=== PATIENT | male | born 1965 | race Caucasian/White ===

== ENCOUNTER 2023-03-24 23:05 | Emergency (ER) | payer MEDICARE, MEDICAID, SELFPAY ==
--- NOTE | 2023-03-24 23:08 | CTR_ITS ---
PROCEDURE INFORMATION: Exam: CT Head Without Contrast Exam date and time: 03/24/2023 11:05 PM Age: 58 years old Clinical indication: Stroke-like symptoms; Right facial droop; RT lower extremity weakness; Additional info: Symptoms of acute stroke TECHNIQUE: Imaging protocol: Computed tomography of the head without contrast. Radiation optimization: All CT scans at this facility use at least one of these dose optimization techniques: automated exposure control; mA and/or kV adjustment per patient size (includes targeted exams where dose is matched to clinical indication); or iterative reconstruction. Other technique: STROKE PROTOCOL was implemented. REPORTING DATA: Count of CT and Cardiac NM exams in prior 12 months: This patient has received 0 known CTs and 0 known cardiac nuclear medicine studies in the 12 months prior to the current study. COMPARISON: No relevant prior studies available. RADIATION DOSE METRICS: Total DLP (mGy-cm): 1224.4 FINDINGS: Brain: Normal. No hemorrhage. Unremarkable white matter. No mass effect. Cerebral ventricles: No ventriculomegaly. Paranasal sinuses: Visualized sinuses are unremarkable. No fluid levels. Mastoid air cells: Visualized mastoid air cells are well aerated. Bones/joints: Unremarkable. No acute fracture. Soft tissues: Unremarkable. CT/CT head thrombolytic [id number] IMPRESSION: No acute intracranial abnormality. ASSESSMENT: ASPECTS ([place] Stroke Program Early CT Score) is 10.
--- NOTE | 2023-03-24 23:08 | XRR_ITS ---
PROCEDURE INFORMATION: Exam: XR Chest Exam date and time: 03/24/2023 11:17 PM Age: 58 years old Clinical indication: Patient HX: Arrival via air evac for possible CVA; Additional info: Weakness TECHNIQUE: Imaging protocol: Radiologic exam of the chest. Views: 1 view. COMPARISON: No relevant prior studies available. FINDINGS: Lungs: Unremarkable. No consolidation. Pleural spaces: Unremarkable. No pleural effusion. No pneumothorax. Heart/Mediastinum: Unremarkable. No cardiomegaly. Bones/joints: Unremarkable. XR/XR chest 1V portable [id number] IMPRESSION: No acute findings.
[2023-03-24 23:09] VITALS: BP 138/82; PULSE 60; RESP 14; O2SAT 95
--- NOTE | 2023-03-24 23:09 | W.ED.NEUROSD ---
HPI - Neuro Symptoms/Deficit General: Chief Complaint: Neuro Symptoms/Deficit Stated Complaint: possible stroke Time Seen by Provider: 03/24/23 23:07 History of Present Illness: 58-year-old male with a time of onset of symptoms of 2100. He presents with right-sided facial droop, right-sided upper and lower extremity weakness, paresthesias, and some vision changes these have not improved. He presents by air ambulance. Time: 23:00 Last Observed Normal: 21:00 Timing confirmed by: spouse Location: right face, dysarthria, right arm and right leg History of same: No Severity: moderate Quality: weak, numb, tingling and constant Relieving factors: none Exacerbating factors: none Associated symptoms: Reports weakness; Deny chest pain, cough, diaphoresis, fevers/chills, headache(s), anorexia, nausea, seizures, short of breath, vertigo or vomiting Treatments Prior to Arrival: none Review of Systems Const: Denies: fever(s), chills or diaphoresis ENMT: Denies: throat pain Card: Denies: chest pain Resp: Denies: dyspnea, productive cough or non-productive cough GI: Denies: abdominal pain, nausea or vomiting Skin/Breast: Denies: rash Neuro: Denies: headache(s) or vertigo PFSH ED PFSH: Medical History COPD (chronic obstructive pulmonary disease) Esophageal cancer Surgical History H/O hernia repair H/O left knee surgery Family History Father Diabetes Grandfather Diabetes Family/Other Diabetes Social History Smoking and tobacco status: current every day smoker cigarettes Packs smoked per day: 1.5 Years cigarettes smoked: 40 Second hand smoke exposure: Yes Smoking risk assessment/counseling performed?: Yes Alcohol intake: current Alcohol intake frequency: 0-2 Drinks per Day Alcohol type: hard liquor Desire information about alcohol rehabilitation?: No Counseling given: Yes Substance/Drug Use: never Counseling given: No Lives independently: Yes Household members: spouse Marital status: Current occupational status: disabled Do you think of yourself as: Straight/Heterosexual Current gender identity: Male NIH stroke score NIHSS: Level Of Consciousness - 1a: 0 Level Of Consciousness Questions - 1b: Both Correct Level Of Consciousness Commands - 1c: Both Correct Best Gaze - 2: Normal Visual [place] - 3: Partial Hemianopia Facial Palsy - 4: Minor Paralysis Motor Arm Right - 5: Effort Against [place] Motor Arm Left - 5: No Drift Motor Leg Right - 6: Effort Against [place] Motor Leg Left - 6: No Drift Limb Ataxia - 7: Present In Two Limbs Sensory - 8: Mild To Moderate Loss Best Language - 9: No Aphasia Dysarthia - 10: Mild/Moderate Dysarthia Extinction And Inattention - 11: 0 Score: Total Score: 10 Physical Exam Const: COMMON NORMALS: alert GENERAL APPEARANCE: cooperative and ill appearing; not frail appearing HENMT: COMMON NORMALS: normocephalic and atraumatic HEAD & SCALP: normocephalic and atraumatic Eye: COMMON NORMALS: Equal, round and reactive pupils present and EOMs intact bilaterally PUPIL: Yes Equal, round and reactive pupils present Neck/C-Spine: COMMON NORMALS: full ROM GENERAL: Yes trachea midline Chest: CHEST: Yes Symmetrical chest wall rise Resp: COMMON NORMALS: normal respiratory effort, No use of accessory muscles and clear to auscultation bilaterally AUSCULTATION: clear to auscultation bilaterally Cardio: COMMON NORMALS: regular rate and regular rhythm RATE: regular rate RHYTHM: regular rhythm GI: COMMON NORMALS: Normal to inspection, nondistended, normoactive bowel sounds present Extremity: COMMON NORMALS: no pedal edema Neuro: [place] COMA SCALE: document GCS findings [place] coma scale eye opening: Spontaneous [place] coma scale verbal response: Orientated [place] coma scale motor response: Obey commands [place] coma scale total score: 15 SENSORIUM/ORIENTATION: Yes alert COORDINATION/BALANCE: No tfhyof-zk-vuie test normal and No kcqs-ln-yaei test normal SPEECH: abnormal speech (Mild dysarthria) and no expressive aphasia SENSORY EXAM: Yes extremities (Decreased right upper right lower) MOTOR EXAM: Abnormal motor strength present COORDINATION: [id number]-rg-[id number] test abnormal and msok-dx-vpyv test abnormal Psych: COMMON NORMALS: mental status grossly normal and cooperative Course Vital Signs: Vital signs: Vital Signs Pulse Rate 60 03/25/23 00:40 Respiratory Rate 26 H 03/25/23 00:40 Blood Pressure 141/81 03/25/23 00:40 Pulse Oximetry 93 03/25/23 00:40 Oxygen Delivery Me thod Nasal Cannula 03/25/23 00:00 Oxygen Flow Rate 2.5 03/25/23 00:00 MDM - Neuro Symptoms/Deficit Medical Decision Making Patient initially evaluated in the CT on arrival. Exam revealed an NIH score of 10. Spoke with neurology. Agreed that the patient was a good candidate for tPA. CT of the head revealed no hemorrhage. Risks and potential benefits of tPA infusion were discussed with the patient and his family. The patient initially refused, but quickly changed his mind when faced with the increased probability of lasting deficit. Bolus was infused. Maintenance dose was started. The patient experienced drastic improvement in his neurological status. In fact, his symptoms had resolved by the time half the maintenance dose had infused. Repeat NIH at that point was essentially 0. The patient was supposed to go for CTA following this, but the patient refused CTA and stated I would like to go home . Nursing urged the patient to stay. I had a long conversation with the patient and his family about reasons to keep him in the ICU following tPA infusion, the risk of bleeding, including major bleeding not only in the brain but rectally, internal hemorrhage, etc. the patient understands these risks. His family urged him to stay. He decided to leave AGAINST MEDICAL ADVICE despite repeated attempts by myself, nursing staff, and his family to convince the patient to stay in the hospital. He is awake, alert, and oriented. He signed AMA forms. He will be placed on aspirin and atorvastatin for secondary risk prevention. He was given precautions about the risk of bleeding with any trauma whatsoever, and that he should remain in bed. Lab Data 03/24/23 23:30 03/24/23 23:30 Radiology Impressions Chest X-Ray 03/24/23 23:08 IMPRESSION: No acute findings. Head CT 03/24/23 23:08 IMPRESSION: No acute intracranial abnormality. ASSESSMENT: ASPECTS ([place] Stroke Program Early CT Score) is 10. Laboratory Results WBC 6.0 10^3/uL (4.0-10.0) 03/24/23 23:30 RBC 5.80 10^6/uL (4.1-5.3) H 03/24/23 23:30 Hgb 18.3 g/dL (11.7-16.6) H 03/24/23 23: Hct 54.3 % (42.0-52.0) H 03/24/23: MCV 93.6 fl (80-94) 03/24/23: MCH 31.6 pg (28.0-34.0) 03/24/23: MCHC 33.7 g/dL (30.0-36.0) 03/24/23: RDW 15.2 % (12.1-15.1) H 03/24/23: Plt Count 225 10^3/cmm (130-400) 03/24/23: MPV 9.6 fL (7.4-10.4) 03/24/23 Neut % (Auto) 52.6 % 03/24/23: Lymph % (Auto) 32.9 % 03/24/23: [place] % (Auto) 8.3 % 03/24/23: Eos % (Auto) 5.0 % 03/24/23: Baso % (Auto) 1.0 % 03/24/23: Neut # (Auto) 3.17 10^3/uL (1.8-7.7) 03/24/23: Lymph # (Auto) 2.0 10^3/uL (0.8-4.8) 03/24/23: [place] # (Auto) 0.5 10^3/uL (0.2-0.9) 03/24/23: Eos # (Auto) 0.3 10^3/uL (0.0-0.8) 03/24/23: Baso # (Auto) 0.1 10^3/uL (0.0-0.1) 03/24/23 Nucleated RBC % (auto) 0 % 03/24/23 Nucleated RBCs # 0.0 /100WBC 03/24/23: PT 12.50 SECONDS (12.1-14.9) 03/24/23: INR 0.91 (0.8-1.2) 03/24/23: APTT 29.8 SECONDS (23.9-36.7) 03/24/23 23: Sodium 135 mmol/L (136-145) L 03/24/23 23: Potassium 2.9 mmol/L (3.5-5.1) L 03/24/23: Chloride 98 mmol/L (98-107) 03/24/23: Carbon Dioxide 25 mmol/L (22-29) 03/24/23: Anion Gap 14.9 (5-19) 03/24/23: BUN 4 mg/dL (6-20) L 03/24/23: Creatinine 0.7 mg/dL (0.7-1.2) 03/24/23: GFR Calculation 115.4 mL/min (90-130) 03/24/23 Glucose 109 mg/dL (65-115) 03/24/23: Calculated Osmolality 277 mOsm/kg (285-295) L 03/24/23: Calcium 8.2 mg/dL (8.5-10.5) L 03/24/23: Total Bilirubin 0.3 mg/dL (0.15-1.2) 03/24/23: AST 19 U/L (0-40) 03/24/23: ALT 11 U/L (0-41) 03/24/23: Alkaline Phosphatase 157 U/L (40-130) H 03/24/23: Total Protein 6.7 g/dL (6.6-8.7) 03/24/23: Albumin 3.9 g/dL (3.5-5.2) 03/24/23: Globulin 2.8 g/dL (1.3-4.6) 03/24/23 23: Urine Color Yellow (Yellow) 03/24/23: Urine Appearance Clear (CLEAR) 03/24/23: Urine pH 7 (5-7) 03/24/23: Ur Specific [place] 1.000 (1.005-1.030) L 03/24/23: Urine Protein Neg (Negative) 03/24/23 Urine Glucose (UA) Norm (Normal) 03/24/23 Urine Ketones Negative (Negative) 05/07/23 23:30 Urine Blood Neg (Negative) 03/24/23 23:30 Urine Nitrate Negative (Negative) 03/24/23 23:30 Urine Bilirubin Neg (Negative) 03/24/23 23:30 Urine Urobilinogen Norm mg/dL (Negative) 03/24/23 23:30 Ur Leukocyte Esterase Negative (Negative) 03/24/23 23:30 Urine Opiates Screen Negative ng/mL (Negative) 03/24/23 23:30 Ur Barbiturates Screen Negative ng/mL (Negative) 03/24/23 23:30 Ur Phencyclidine Scrn Negative ng/mL (Negative) 03/24/23 23:30 Ur Amphetamines Screen Negative ng/mL (Negative) 03/24/23 23:30 U Benzodiazepines Scrn Negative ng/mL (Negative) 03/24/23 23:30 Urine Cocaine Screen Negative ng/mL (Negative) 03/24/23 23:30 U Marijuana (THC) Screen Negative ng/mL (Negative) 03/24/23 23:30 Ethyl Alcohol 170 mg/dL (0-10) H 03/24/23 23:30 Critical Care Time Critical Care Time: Critical Care Time: Yes Total Critical Care Time: 35 Attestation: This case had a high probability of a clinically significant, sudden, or life threatening deterioration of this patient's condition which required my full and direct attention, intervention and personal management. Time is independent of and excludes any procedures performed. Discharge Plan Discharge Patient Disposition: Left Against Medical Advice Clinical Impression: Acute cerebrovascular accident (CVA) Condition: Stable Prescriptions: New atorvastatin 80 mg tablet 80 mg PO DAILY Qty: 30 0RF aspirin 325 mg tablet 325 mg PO DAILY Qty: 30 0RF No Action hydroxyzine HCl 25 mg tablet 25 mg PO BID nitroglycerin 0.4 mg tablet, sublingual 0.4 mg sublingual Q5M PRN Rx Instructions: do not exceed 3 doses per episode albuterol sulfate [Ventolin HFA] 90 mcg/actuation HFA aerosol inhaler 2 puff inhalation Q6H PRN Anoro Ellipta 62.5-25 mcg/actuation blister with device 1 inh inhalation DAILY ipratropium bromide 0.02 % solution 2.5 ml inhalation Q6H PRN acetaminophen [Tylenol Arthritis Pain] 650 mg tablet extended release 650 mg PO Q12H PRN (Reason: pain) Perforomist 20 mcg/2 mL solution for nebulization See Rx Instructions .ROUTE .COMPLEX Qty: 60 11RF Dose Instruction: USE 1 VIAL IN NEBULIZER TWICE DAILY - morning and evening Rx Instructions: USE 1 VIAL IN NEBULIZER TWICE DAILY - morning and evening Yupelri 175 mcg/3 mL solution for nebulization See Rx Instructions .ROUTE .COMPLEX Qty: 30 11RF Dose Instruction: USE 1 VIAL IN NEBULIZER DAILY Rx Instructions: USE 1 VIAL IN NEBULIZER DAILY budesonide 0.5 mg/2 mL suspension for nebulization See Rx Instructions .ROUTE .COMPLEX Qty: 60 11RF Dose Instruction: USE 1 VIAL IN NEBULIZER TWICE DAILY - rinse mouth after treatment Rx Instructions: USE 1 VIAL IN NEBULIZER TWICE DAILY - rinse mouth after treatment Referrals: Rolando Silverman, [Primary Care Provider] - 1-3 days Activity Restrictions/Additional Instructions: Fill prescriptions and begin to take, as they can reduce your risk of another stroke. Return for any worsening symptoms. You have chosen to leave AGAINST MEDICAL ADVICE. Coding Level of Care Code ED Compressor Battery Pellets for [facility]
[2023-03-24 23:32] VITALS: BP 148/93; PULSE 62; RESP 15; O2SAT 94
[2023-03-24] MEDS: iohexol 350 mg/mL 500 mL Btl (per mL) IV (23:44)
[2023-03-24 23:51] LABS: Add Urine Microscopic? NO; Charge for UA Resulting for Rev
[2023-03-25] VITALS (7 sets, daily range): BP systolic 115–152; BP diastolic 77–82; PULSE 60–62; RESP 12–26; O2SAT 93–95
[2023-03-25 00:09] LABS: INR 0.91 (0.8-1.2)
[2023-03-25 00:13] LABS: Bilirubin Urine Neg (Negative); Blood Urine Neg (Negative); Glucose Urine UA Norm (Normal); Ketones Urine Negative (Negative); Leukocyte Esterase Urine Negative (Negative); Nitrate Urine Negative (Negative); Protein Urine Neg (Negative); Urine Appearance Clear (CLEAR); Urine Color Yellow (Yellow); Urobilinogen Urine Norm (Negative); pH Urine 7 (5-7)
[2023-03-25 00:15] LABS: Alanine Aminotransferase 11 U/L (0-41); Albumin Level 3.9 g/dL (3.5-5.2); Alcohol Level 170 mg/dL (0-10); Alkaline Phosphatase 157 U/L (40-130); Anion Gap 14.9 (5-19); Aspartate Amino Transferase 19 U/L (0-40); Blood Urea Nitrogen 4 mg/dL (6-20); Calcium 8.2 mg/dL (8.5-10.5); Carbon Dioxide 25 mmol/L (22-29); Chloride 98 mmol/L (98-107); Globulin 2.8 g/dL (1.3-4.6); Glomerular Filtration Rate 115.4 mL/min (90-130); Glucose 109 mg/dL (65-115); Osmolality Calculated 277 mOsm/kg (285-295); Sodium 135 mmol/L (136-145); Total Bilirubin 0.3 mg/dL (0.15-1.2); Total Protein 6.7 g/dL (6.6-8.7)
[2023-03-25 00:18] LABS: Potassium 2.9 mmol/L (3.5-5.1)
[2023-03-25 00:22] LABS: Amphetamines Screen Urine Negative (Negative); Barbiturates Screen Urine Negative (Negative); Benzodiazepines Screen Urine Negative (Negative); Cocaine Screen Urine Negative (Negative); Opiate Screen Urine Negative (Negative); PCP Screen Urine Negative (Negative); THC Screen Urine Negative (Negative)
[2023-03-25 00:24] LABS: Basophils # 0.1 10^3/uL (0.0-0.1); Eosinophils # 0.3 10^3/uL (0.0-0.8); Hematocrit 54.3 % (42.0-52.0); Hemoglobin 18.3 g/dL (11.7-16.6); Lymphocytes % 32.9 %; Mean Corpuscular HGB Conc 33.7 g/dL (30.0-36.0); Mean Corpuscular Hemoglobin 31.6 pg (28.0-34.0); Mean Corpuscular Volume 93.6 fl (80-94); Mean Platelet Volume 9.6 fL (7.4-10.4); Monocytes # 0.5 10^3/uL (0.2-0.9); Monocytes % 8.3 %; Neutrophils # 3.17 10^3/uL (1.8-7.7); Neutrophils % 52.6 %; Nucleated Red Blood Cells % 0 %; Platelet Count 225 10^3/cmm (130-400); Red Cell Distribution Width 15.2 % (12.1-15.1)
[2023-03-25 00:28] LABS: Partial Thromboplastin Time 29.8 SECONDS (23.9-36.7)
--- NOTE | 2023-03-25 00:50 | PC.NURSE ---
This RN to bedside secondary to pt wishing to stand to urinate. TPA currently infusing. Explained to pt the risk of standing and that I would be happy to assist him with a urinal on the side of the bed. Pt states Im going to stand and I am going to go home. Pt then continued by saying we fixed him and that he was going home tonight no matter what. Explained to the patient that it is extremely dangerous for him to leave too soon and that he needed closer monitoring. Pt stated he was leaving and he was working tomorrow. Requested that the patient wait until TPA completed and then let the MD speak to him. Pt agreed. Pt with approx 10 minutes left of infusion. MD notified.
[2023-03-25] MEDS: potassium chloride ER 20 mEq Tablet 40 MEQ PO (01:04)
--- NOTE | 2023-03-25 02:27 | PC.NURSE ---
Patient advised to use the call light before exiting bed. Patient stood to use urinal at the bedside with family prior to the administration of the TPA.
--- NOTE | 2023-03-25 03:03 | PC.NURSE ---
0015 patient had regained use of his right extremities per neuro checks. Patient decided he wanted to leave and made a statement about wanting to leave. Dr Richardson was notified of the patient wanting to leave AMA and advised him that leaving AMA would put him at risk for a bleed. 0104 while administering the patient his potassium he stated You saved my life but I'm ready to go and started trying to remove his leads. 0115 Patient unhooked himself from the monitor and came out of his room stating he was ready to go. Patient had both of his IV's removed. I advised him against leaving and educated him on the risks of a potential bleed if he was to fall or cut himself. Patient educated on the use an electric razor and to rest in bed. 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 I educated the patient on the fact the medication he was just administered was to thin his blood and break up a clot. Patient's family want him to stay but he was very non-compliant with their want/need for him to be monitored over night. Patient given discharge instructions about newly prescribed medications and what to watch for in adverse reactions and the potential for a secondary event. Patient signed his AMA form at 0123.
--- NOTE | 2023-03-25 08:16 | P.PNCC_ITS ---
Stroke Alert Activation ED Arrival Date: 03/24/23 ED Arrival Time: 23:09 ED Physican at Bedside: 23:09 Other Last Known Well Infomation: Stroke alert was activated at 2248 when the patient was 13 minutes out, alert by Air-Evac life team. I called the emergency department and spoke with the triage nurse, learning that the deficit was less than 30 minutes old and that the patient had right hemiparesis. Dr. Richardson called me less than 30 minutes later and notified me that the patient had a stroke scale score of 10, dense right hemiparesis with sensory involvement, dysarthria and that he was awake at time of onset, laying in bed and talking with his . We agreed that it was appropriate for the patient to receive tPA. He is not on blood thinners. His CT scan of the head was negative for hemorrhage. His blood pressure was not markedly elevated and his bedside glucose was normal. Stroke MD @ Bedside Time: 22:48 NIH Stroke Scale Time: 23:32 NIH stroke score NIHSS: Level Of Consciousness - 1a: 0 Level Of Consciousness Questions - 1b: Both Correct Level Of Consciousness Commands - 1c: Both Correct Best Gaze - 2: Normal Visual [place] - 3: No Visual Loss Facial Palsy - 4: Minor Paralysis Motor Arm Right - 5: Effort Against [place] Motor Arm Left - 5: No Drift Motor Leg Right - 6: Effort Against [place] Motor Leg Left - 6: No Drift Limb Ataxia - 7: Present In Two Limbs Sensory - 8: Mild To Moderate Loss Best Language - 9: No Aphasia Dysarthia - 10: Mild/Moderate Dysarthia Extinction And Inattention - 11: 0 Score: Total Score: 9 Stroke Alert Data/Treatment Time to CT of Head: 23:09 CT Results Time: 23:23 CT Impression: normal Stroke Risk Factors: hypertension tPA Started Time: tPA Started - Time: 23:50 tPA Admin Prior to Arrival: No Patient & Family Educated on: Cause of Stroke, Treament Plan, Prognosis and tPA Risks/Benefits Other Patient & Family Education: the patient's deficit resolved completely within 3 hours and he left against medical advice despite strong advice to stay. Critical Care Time Critical Care Time: less than 30 mins A&P Assessment and plan (1) Acute cerebrovascular accident (CVA): 58-year-old hypertensive man presented with dense right hemiplegia and met qualifications for tPA. He was treated rapidly. Dr. Funes and I indicated that I provided advice through telestroke. The patient elected to leave AGAINST MEDICAL ADVICE after his symptoms resolved. (2) Left middle cerebral artery stroke: Coding Level of Care Code Acute Code for [facility] Diagnoses Acute cerebrovascular accident (CVA) I63.9 Left middle cerebral artery stroke I63.512
== END 2023-03-25 01:23 | disposition left against medical advice (07) ==
PROVIDERS: Emergency Provider Emergency Medicine; PCP Family Medicine
DX: I63.9 Cerebral infarction, unspecified (principal); Z53.21 Procedure and treatment not carried out due to patient leaving prior to being seen by health care provider; J44.9 Chronic obstructive pulmonary disease, unspecified; Z85.01 Personal history of malignant neoplasm of esophagus; F17.210 Nicotine dependence, cigarettes, uncomplicated
CPT/HCPCS: 70450; 71045; 80053; 80306; 80307; 81003; 85025; 85610; 85730; 96365; 99285; 99291; J2997; Q9967